=== PATIENT | female | born 1935 | race Caucasian/White ===

== ENCOUNTER 2022-03-02 17:32 | Emergency (ER) | payer MEDICARE, OTHER ==
[2022-03-02 17:49] VITALS: RESP 18; BMI 31.4
[2022-03-02] MEDS ORDERED: ACETAMINOPHEN 1000 MG/100 ML BAG IVPB ONE (18:25)
[2022-03-02] MEDS ORDERED: LIDOCAINE 5% TOPICAL PATCH TP ONE (18:25)
[2022-03-02 19:26] VITALS: TEMP 98.5
[2022-03-02] MEDS ORDERED: ACETAMINOPHEN INJECTION 100 ML IVPB ONE (19:26)
[2022-03-02] MEDS ORDERED: LIDOCAINE 5% TOPICAL PATCH ONE (19:27)
[2022-03-02 19:51] LABS: BASO % 0.7 % (0-2.0); EOS % 2.6 % (0-4.5); HEMOGLOBIN 12.3 GM/dL (10.7-15.3); LYMPH % 27.2 % (8-40); MCH 28.7 pg (25.7-33.7); MCHC 32.4 g/dl (32.0-36.0); MEAN CELL VOLUME 88.4 fl (80-96); MEAN PLT VOLUME 8.8 fl (7.5-11.1); MONO % 5.3 % (3.8-10.2); NEUT % 64.2 % (42.8-82.8); PLATELET COUNT 248 10^3/uL (134-434); RDW 14.7 % (11.6-15.6); WHITE BLOOD COUNT 5.9 K/mm3 (4.0-10.0)
[2022-03-02 19:53] LABS: PH,URINE 6.5 (5.0-8.0); URINE APPEARANCE CLEAR; URINE BILIRUBIN NEGATIVE (NEGATIVE); URINE COLOR YELLOW; URINE GLUCOSE (UA) NEGATIVE (NEGATIVE); URINE KETONE NEGATIVE (NEGATIVE); URINE LEUK ESTERASE NEGATIVE (NEGATIVE); URINE NITRITE NEGATIVE (NEGATIVE); URINE PROTEIN NEGATIVE (NEGATIVE); URINE UROBILINOGEN 0.2 mg/dL (0.2-1.0)
[2022-03-02 19:58] LABS: ALBUMIN 3.5 g/dl (3.4-5.0); BLOOD UREA NITROGEN 21.3 mg/dL (7-18); CALCIUM 9.2 mg/dL (8.5-10.1); MAGNESIUM 2.1 mg/dL (1.8-2.4)
[2022-03-02 20:02] LABS: CREATININE 0.9 mg/dL (0.55-1.3)
[2022-03-02 20:04] LABS: BILIRUBIN,TOTAL 0.7 mg/dL (0.2-1); TOT PROT 6.4 g/dl (6.4-8.2)
[2022-03-02 20:07] LABS: N-TERMINAL BNP 122.1 pg/ml (5-450)
[2022-03-02] MEDS ORDERED: ATORVASTATIN CA 40 MG TABLET (FP) PO ONE (23:15)
[2022-03-02] MEDS ORDERED: ATORVASTATIN CA 40 MG TABLET (FP) ONE (23:16)
[2022-03-03 00:51] VITALS: BP 145/78; PULSE 62
[2022-03-03] MEDS ORDERED: LIDOCAINE PATCH REMOVAL MC SCH (07:00)
== END 2022-03-03 01:17 | disposition home or self-care (01) ==
LOC: JER 17:32
PROC: 3E0333Z Introduction of Anti-inflammatory into Peripheral Vein, Percutaneous Approach (ICD-10-PCS; principal; 2022-03-02)
DX: R07.9 Chest pain, unspecified (principal)
CPT/HCPCS: 0241U-QW; 36415; 71046-TC-FY; 71250-TC; 74176-TC; 80053; 81003; 83735; 83880; 84484; 85025; 87086; 93005; 93010; 93970-TC; 99285-25